=== PATIENT | female | born 1965 | race Asian ===

== ENCOUNTER 2021-01-29 16:09 | Inpatient (IN) | payer MEDICAID, SELFPAY ==
[~2021-01-29] VITALS: Ht 165.1 cm; Wt 63.5 kg
[2021-01-29 16:09] VITALS: BP 120/86
--- NOTE | 2021-01-29 16:10 | NUR ---
Patient BIBA BLS from [facility], transferred to bed 10. RN evaluating the patient at bedside.
[2021-01-29] MEDS ORDERED: KETOROLAC 60 MG/2 ML VIAL IM ONE (16:15)
[2021-01-29] MEDS ORDERED: TRA200 GT (16:27)
[2021-01-29] MEDS ORDERED: AMLO10TA GT (16:27)
[2021-01-29] MEDS ORDERED: HYDR-1100 GT (16:27)
[2021-01-29] MEDS ORDERED: CETI10CT GT (16:27)
[2021-01-29] MEDS ORDERED: LOSA50TA57 GT (16:27)
[2021-01-29] MEDS ORDERED: METF500T GT (16:27)
[2021-01-29] MEDS ORDERED: CALC-1018 GT (16:27)
[2021-01-29] MEDS ORDERED: DOCU-299 GT (16:27)
[2021-01-29] MEDS ORDERED: ASPI-1822 GT (16:27)
[2021-01-29] MEDS ORDERED: LANS15EC28 GT (16:27)
[2021-01-29] MEDS ORDERED: APIX5TAB GT (16:27)
--- NOTE | 2021-01-29 16:46 | NUR ---
LAB AT BEDSIDE.
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
--- NOTE | 2021-01-29 16:51 | NUR ---
sfdc technical architect at bedside.
[2021-01-29 16:59] LABS: BASOPHILS # (AUTO) 0.1 K/uL (0.00-0.22); BASOPHILS % (AUTO) 0.8 % (0.0-2.0); EOSINOPHILS # (AUTO) 0.2 K/uL (0-0.4); EOSINOPHILS % (AUTO) 2.5 % (0.0-4.0); HEMATOCRIT 35.2 % (36-48); HEMOGLOBIN 11.9 g/dL (12.0-16.0); LYMPHOCYTES # (AUTO) 3.3 K/uL (2.5-16.5); LYMPHOCYTES % (AUTO) 35.9 % (20.5-51.1); MEAN CORPUSCULAR HEMOGLOBIN 29 pg (27-31); MEAN CORPUSCULAR HGB CONC 34 g/dL (33-37); MEAN CORPUSCULAR VOLUME 86.9 fL (80-94); MONOCYTES # (AUTO) 0.6 K/uL (0.8-1.0); MONOCYTES % (AUTO) 6.2 % (1.7-9.3); NEUTROPHILS % (AUTO) 54.6 % (42.2-75.2); PLATELET COUNT (AUTO) 273 K/uL (140-450); RED BLOOD CELL COUNT(AUTO) 4.05 MIL/uL (4.20-5.40); RED CELL DISTRIBUTION WIDTH 13.6 % (11.6-13.7); WHITE BLOOD COUNT (AUTO) 9.1 K/uL (4.8-10.8)
--- NOTE | 2021-01-29 17:00 | NUR ---
PTS DAUGTHER AT BEDSIDE.
--- NOTE | 2021-01-29 17:09 | NUR ---
Dr. Acosta is evaluating the patient at bedside.
[2021-01-29 17:20] LABS: CREATININE 0.7 mg/dL (0.6-1.3)
--- NOTE | 2021-01-29 17:25 | NUR ---
PT UNABLE TO VOID AT THIS TIME. PT GIVEN FLUIDS.
[2021-01-29 17:26] LABS: ALBUMIN 3.7 g/dL (3.4-5.0); TOTAL BILIRUBIN 0.2 mg/dL (0.0-1.0)
--- NOTE | 2021-01-29 17:26 | NUR ---
DAUGHTER AT BEDSIDE ROBERT DESAI. SHE IS REQUESTING THAT PATIENT GO TO A FACILITY WHERE THERE ARE BRITISH SPEAKING STAFF MEMBERS SO THE PATIENT WILL FEEL SAFE. THE [place] [facility] [place] I CALLED AND SPOKE TO ALEC AND HE STATES THAT THE SOONEST HE MAY HAVE A BED IS TOMORROW AM. I ADVISED HIM THAT WE WOULD ADMIT HER AND FAX CLINICALS OVER ONCE AVAILABLE. [facility]- TELEHEALTH COORDINATOR FAX ATTENTION ALEC
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
[2021-01-29] MEDS ORDERED: cefTRIAXone 1,000 MG VIAL ONE (17:32)
--- NOTE | 2021-01-29 17:37 | NUR ---
DANILO SWAB COLLECTED AND WALKED OVER TO LAB.
--- NOTE | 2021-01-29 17:59 | NUR ---
PT UNABLE TO VOID.
--- NOTE | 2021-01-29 18:29 | NUR ---
PT REQUESTING TO HAVE DIAPER CHANGED. PERINEAL CARE PROVIDED TO PT AND PT CHANGED INTO CLEAN DIARPER. PT STILL UNABLE TO VOID, PT GIVEN FLUIDS PO.
--- NOTE | 2021-01-29 19:15 | NUR ---
TRANSFER OF CARE AT THIS TIME TO [facility]URA CORRAL
--- NOTE | 2021-01-29 19:25 | NUR ---
PERNIEAL CARE PROVIDED, SKIN LEFT CLEAN AND DRY. SKIN INTACT. UA COLLECTED VIA BEDPAN. VSS. PATIENT ABLE TO VERBALIZE NEEDS.
--- NOTE | 2021-01-29 19:45 | NUR ---
Patient will be admitted to care of . Admited to [facility]. Will go to room 107A. Belongings list completed. Report to KALI LORENZO.
[2021-01-29 19:46] LABS: APPEARANCE,URINE CLEAR (CLEAR); BILIRUBIN,URINE NEGATIVE (NEGATIVE); BLOOD, URINE NEGATIVE (NEGATIVE); COLOR,URINE YELLOW (YELLOW); LEUKOCYTE ESTERASE ,URINE TRACE (NEGATIVE); NITRITE, URINE NEGATIVE (NEGATIVE); UGLUCOSE NEGATIVE (NEGATIVE)
[2021-01-29 19:54] LABS: RBC,URINE FEW /HPF (0-5)
--- NOTE | 2021-01-29 20:00 | NUR ---
RECEIVED PATIENT FROM ER NURSE VIA [facility] FOR CONTINUITY OF CARE. ALERT AND ABLE TO MAKE NEEDS KNOWN IN CANTONESE. RESPIRATIONS EVEN, UNLABORED. NO S/S RESPIRATORY DISTRESS. S1/S2 AUSCULTATED. SKIN ASSESSMENT COMPLETED. SKIN WARM, DRY AND INTACT. SALINE LOCK TO RIGHT WRIST 22G PATENT/INTACT. NO C/O PAIN. NO S/S ACUTE DISTRESS. ABDOMEN SOFT, NONTENDER, NONDISTENDED. BOWEL SOUNDS ACTIVE x4 QUADRANTS. GTUBE PATENT/INTACT, FLUSHES WELL. NO RESIDUAL NOTED. HOB UP 30 DEGREES. PATIENT IS INCONTINENT OF B/B. LEFT SIDED WEAKNESS NOTED. PATIENT ORIENTED TO ROOM/STAFF AND CALL LIGHT. MRSA SCREEN COMPLETED. PLAN OF CARE DISCUSSED. CALL LIGHT IN REACH. SAFETY PRECAUTIONS IN PLACE.
--- NOTE | 2021-01-29 20:55 | NUR ---
LEFT A MESSAGE WITH MD REGARDING ADMITTING ORDERS.
[2021-01-29 20:56] VITALS: BP 128/90
--- NOTE | 2021-01-29 21:15 | NUR ---
SPOKE TO DAUGHTER ROBERT ON THE PHONE TO UPDATE HER ON HER MOTHER'S ADMISSION. ALL QUESTIONS REGARDING PATIENT'S CARE ANSWERED. DAUGHTER ABLE TO PROVIDED HISTORY FOR PATIENT.
--- NOTE | 2021-01-29 23:19 | NUR ---
INCONTINENT CARE RENDERED. NO S/S RESPIRATORY DISTRESS. NO C/O PAIN. NO S/S ACUTE DISTRESS. SAFETY PRECAUTIONS IN PLACE. CALL LIGHT IN REACH.
--- NOTE | 2021-01-30 01:21 | NUR ---
MADE ROUNDS. PATIENT IS ASLEEP. NO S/S RESPIRATORY DISTRESS. NO S/S ACUTE DISTRESS. SAFETY PRECAUTIONS IN PLACE. CALL LIGHT IN REACH.
--- NOTE | 2021-01-30 03:49 | NUR ---
PATIENT IS ASLEEP.
[2021-01-30 04:00] VITALS: BP 110/75
--- NOTE | 2021-01-30 05:03 | NUR ---
PATIENT RESTING COMFORTABLY IN BED. NO S/S RESPIRATORY DISTRESS. NO C/O PAIN. NO S/S ACUTE DISTRESS. PATIENT CLEAN/DRY. CALL LIGHT IN REACH. SAFETY PRECAUTIONS IN PLACE.
--- NOTE | 2021-01-30 05:53 | NUR ---
TO REVIEW MEDICATION REGIMEN FOR PATIENT.
[2021-01-30] MEDS ORDERED: MAG SULF 2000 MG/WATER PREMIX 50 ML IV PRN (06:55)
[2021-01-30] MEDS: NACL 0.9% 1,000 ML IV SCH (06:55)
[2021-01-30] MEDS ORDERED: POTASSIUM CHLORIDE 40 MEQ, LIDOCAINE MPF 1% 25 MG in NACL 0.9% 250 ML IV PRN (06:55)
[2021-01-30] MEDS ORDERED: ONDANSETRON 4 MG/2 ML VIAL IM/IVP PRN (06:55)
[2021-01-30] MEDS ORDERED: SODIUM PHOS / POTASSIUM PHOS 1 PKT PDR GT PRN (06:55)
[2021-01-30] MEDS ORDERED: MORPHINE SULFATE 2 MG/ML SYR IVP PRN (06:55)
[2021-01-30] MEDS ORDERED: ACETAMINOPHEN 325 MG TAB PO PRN (06:55)
[2021-01-30 07:18] LABS: BASOPHILS % (AUTO) 0.5 % (0.0-2.0); EOSINOPHILS # (AUTO) 0.2 K/uL (0-0.4); EOSINOPHILS % (AUTO) 2.5 % (0.0-4.0); HEMATOCRIT 34.9 % (36-48); HEMOGLOBIN 11.7 g/dL (12.0-16.0); LYMPHOCYTES % (AUTO) 22.7 % (20.5-51.1); MEAN CORPUSCULAR HEMOGLOBIN 30 pg (27-31); MEAN CORPUSCULAR HGB CONC 34 g/dL (33-37); MEAN CORPUSCULAR VOLUME 87.8 fL (80-94); MONOCYTES # (AUTO) 0.5 K/uL (0.8-1.0); NEUTROPHILS % (AUTO) 68.3 % (42.2-75.2); PLATELET COUNT (AUTO) 279 K/uL (140-450); RED BLOOD CELL COUNT(AUTO) 3.97 MIL/uL (4.20-5.40); WHITE BLOOD COUNT (AUTO) 8.8 K/uL (4.8-10.8)
[2021-01-30 07:25] LABS: ANION GAP 14.5 (8-16); CARBON DIOXIDE 26.8 mmol/L (21-32); CREATININE 0.6 mg/dL (0.6-1.3); MAGNESIUM 1.8 mg/dL (1.8-2.4); PHOSPHORUS 4.8 mg/dL (2.5-4.9); POTASSIUM 4.3 mmol/L (3.5-5.1)
--- NOTE | 2021-01-30 07:30 | NUR ---
RECEIVED BEDSIDE ENDORSEMENT FROM NIGHTSDEFT NURSE FOR CONTINUITY OF CARE.
[2021-01-30] MEDS: PANTOPRAZOLE 40 MG INJ VIAL IVP SCH (08:29)
[2021-01-30] MEDS: DOCUSATE 100 MG/10 ML UDC GT SCH ×2 (08:29→20:07)
[2021-01-30] MEDS: LOSARTAN 50 MG TAB GT SCH ×2 (08:29→20:07)
[2021-01-30] MEDS: CALCIUM CARB/VIT-D 500 MG/200 IU 1 TAB GT SCH ×2 (08:30→20:07)
[2021-01-30] MEDS: ASPIRIN 81 MG TAB.CHEW GT SCH (08:30)
[2021-01-30] MEDS: amLODIPine 5 MG TAB GT SCH (08:30)
[2021-01-30] MEDS: LABETALOL 200 MG TAB GT SCH ×2 (08:31→20:08)
[2021-01-30] MEDS: HYDROcodone/APAP 5/325 MG 1 TAB TAB GT PRN ×2 (08:31→18:24)
[2021-01-30] MEDS: APIXABAN 2.5 MG TAB GT SCH ×2 (08:35→20:07)
--- NOTE | 2021-01-30 08:48 | NUR ---
ADMINISTERED PRESCRIBED MEDS AND PRN PAIN MED ORDERED BY MD. PATIENT TOLERATED WELL. MEDICATION EDUCATION REINFORCEMENT NEEDED DUE TO LANGUAGE BARRIER. SAFETY MEASURES IN PLACE. WILL CONTINUE TO MONITOR.
--- NOTE | 2021-01-30 12:08 | NUR ---
PATIENT ROUNDING PERFORMED. PATIENT RESTING IN BED. SHOWS NO SIGNS OF DISTRESS/DISCOMFORT. PATIENT RESPIRATIONS EVEN AND UNLABORED. SAFETY MEASURES IN PLACE. WILL CONTINUE TO MONITOR.
[2021-01-30] MEDS: hydrALAZINE 25 MG TAB GT SCH ×2 (13:00→20:07)
--- NOTE | 2021-01-30 14:41 | NUR ---
PATIENT MEDICATION HELD PER PARAMETERS; BP 96/64 PULSE 75. PATIENT REQUESTED TO TURN ON TV. PATIENT SHOWS NO SIGNS OF DISTRESS. RESPIRATIONS EVEN AND UNLABORED. SAFETY MEASURES IN PLACE. WILL CONTINUE TO MONITOR.
--- NOTE | 2021-01-30 18:32 | NUR ---
PATIENT CRYING OF IV PAIN/DISCOMFORT. IV LINE PATENT. DISCONNECTED AND ADMINISTERED PRESCRIBED MEDICATION FOR PRN PAIN ORDERED BY MD. PATIENT TOLERATED WELL. MEDICATION EDUCATION REINFORCEMENT NEEDED. SAFETY MEASURES IN PLACE. WILL CONTINUE TO MONITOR.
--- NOTE | 2021-01-30 19:22 | NUR ---
BEDSIDE ENDORSEMENT PROVIDED TO NIGHTSHIFT NURSE FOR CONTINUITY OF CARE.
--- NOTE | 2021-01-30 19:22 | NUR ---
RECEIVED PATIENT FROM AM SHIFT NURSE VIA FOR CONTINUITY OF CARE. ALERT AND ABLE TO MAKE NEEDS KNOWN IN CANTONESE. RESPIRATIONS EVEN, UNLABORED. NO S/S RESPIRATORY DISTRESS. S1/S2 AUSCULTATED. SKIN WARM, DRY AND INTACT. SALINE LOCK TO RIGHT WRIST 22G PATENT/INTACT. NO C/O PAIN. NO S/S ACUTE DISTRESS. ABDOMEN SOFT, NONTENDER, NONDISTENDED. BOWEL SOUNDS ACTIVE x4 QUADRANTS. GTUBE PATENT/INTACT, FLUSHES WELL. NO RESIDUAL NOTED. HOB UP 30 DEGREES. PATIENT IS INCONTINENT OF B/B. LEFT SIDED WEAKNESS NOTED. PLAN OF CARE DISCUSSED. CALL LIGHT IN REACH. SAFETY PRECAUTIONS IN PLACE.
[2021-01-30 20:00] VITALS: BP 123/85
--- NOTE | 2021-01-30 21:00 | NUR ---
DUE MEDS GIVEN. PATIENT RESTING COMFORTABLY IN BED. NO S/S RESPIRATORY DISTRESS. NO C/O PAIN. NO S/S ACUTE DISTRESS. PATIENT CLEAN/DRY. SAFETY PRECAUTIONS IN PLACE. CALL LIGHT WITHIN REACH.
--- NOTE | 2021-01-30 23:42 | NUR ---
INCONTINENT CARE RENDERED WITH CHARTERED FINANCIAL ANALYST AT BEDSIDE. NO S/S RESPIRATORY DISTRESS. NO C/O PAIN. NO S/S ACUTE DISTRESS. SAFETY PRECAUTIONS IN PLACE. CALL LIGHT WITHIN REACH.
[2021-01-30] MEDS ORDERED: DEXTROSE 50% 50 ML SYR IVP PRN (23:55)
[2021-01-30] MEDS ORDERED: INSULIN LISPRO SLIDING SCALE 100 UNITS/ML VIAL SUBQ PRN (23:55)
--- NOTE | 2021-01-31 01:05 | NUR ---
MADE ROUNDS. INCONTINENT CARE RENDERED WITH PANEL LAY UP WORKER AT BEDSIDE. NO S/S RESPIRATORY DISTRESS. NO C/O PAIN. NO S/S ACUTE DISTRESS. SAFETY PRECAUTIONS IN PLACE. CALL LIGHT WITHIN REACH.
[2021-01-31] MEDS: HYDROcodone/APAP 5/325 MG 1 TAB TAB GT PRN ×2 (02:03→20:48)
--- NOTE | 2021-01-31 03:26 | NUR ---
PATIENT IS ASLEEP. NO S/S RESPIRATORY DISTRESS. NO S/S ACUTE DISTRESS. SAFETY PRECAUTIONS IN PLACE. CALL LIGHT WITHIN REACH.
[2021-01-31] MEDS: hydrALAZINE 25 MG TAB GT SCH ×3 (04:33→21:00)
--- NOTE | 2021-01-31 05:04 | NUR ---
INCONTINENT CARE RENDERED WITH BLACKTOP SPREADER AT BEDSIDE. NO S/S RESPIRATORY DISTRESS. NO C/O PAIN. NO S/S ACUTE DISTRESS. SAFETY PRECAUTIONS IN PLACE. CALL LIGHT WITHIN REACH.
[2021-01-31] MEDS: BLOOD GLUCOSE MONITORING 1 DEV DEV FS SCH ×4 (06:39→20:46)
[2021-01-31] MEDS: NACL 0.9% 1,000 ML IV SCH (06:55)
--- NOTE | 2021-01-31 07:30 | NUR ---
RECEIVED PATIENT FROM INSOLE PRESSER NURSE. AOX4, ONLY SPEAKS CANTONESE, NO C/O PAIN. NO APPARENT DISTRESS, RESPIRATIONS EVEN AND UNLABORED, SKIN WARM AND DRY. IV SITE RW 22G. PT REFUSING IVF AND FLUIDS. ABDOMEN SOFT, NONTENDER. SAFETY PRECAUTIONS IN PLACE. CALL LIGHT WITHIN REACH. WILL CONTINUE TO MONITOR
[2021-01-31 07:45] LABS: CREATININE 0.6 mg/dL (0.6-1.3); POTASSIUM 4.4 mmol/L (3.5-5.1)
[2021-01-31 07:53] LABS: BASOPHILS % (AUTO) 0.4 % (0.0-2.0); EOSINOPHILS # (AUTO) 0.2 K/uL (0-0.4); EOSINOPHILS % (AUTO) 2.3 % (0.0-4.0); HEMATOCRIT 35.4 % (36-48); LYMPHOCYTES # (AUTO) 2.3 K/uL (2.5-16.5); LYMPHOCYTES % (AUTO) 23.7 % (20.5-51.1); MEAN CORPUSCULAR HEMOGLOBIN 30 pg (27-31); MEAN CORPUSCULAR HGB CONC 34 g/dL (33-37); MEAN CORPUSCULAR VOLUME 88.1 fL (80-94); MONOCYTES # (AUTO) 0.6 K/uL (0.8-1.0); MONOCYTES % (AUTO) 6.1 % (1.7-9.3); NEUTROPHILS # (AUTO) 6.7 K/uL (1.8-7.7); NEUTROPHILS % (AUTO) 67.5 % (42.2-75.2); PLATELET COUNT (AUTO) 278 K/uL (140-450); RED BLOOD CELL COUNT(AUTO) 4.01 MIL/uL (4.20-5.40); RED CELL DISTRIBUTION WIDTH 13.5 % (11.6-13.7); WHITE BLOOD COUNT (AUTO) 9.9 K/uL (4.8-10.8)
[2021-01-31 08:00] VITALS: BP 122/74
[2021-01-31 08:09] LABS: ANION GAP 16.2 (8-16); CARBON DIOXIDE 25.2 mmol/L (21-32)
--- NOTE | 2021-01-31 08:32 | NUR ---
PATIENT HAS BEEN SCREENED AND CATEGORIZED HIGH NUTRITION RISK. PATIENT WILL BE SEEN WITHIN 1-2 DAYS OF ADMISSION. 01/31/21 FNS CONSULT FOR ROC LESS THAN 12 NOT ACCURATE, ROC SCORE WAS 15. REFERRAL WAS RECEIVED. PATIENT HAS G-TUBE. PHILIP KAYE RD
[2021-01-31] MEDS: PANTOPRAZOLE 40 MG INJ VIAL IVP SCH (09:00)
[2021-01-31] MEDS: DOCUSATE 100 MG/10 ML UDC GT SCH ×2 (09:00→20:46)
[2021-01-31] MEDS: LOSARTAN 50 MG TAB GT SCH ×2 (09:00→21:00)
[2021-01-31] MEDS: ASPIRIN 81 MG TAB.CHEW GT SCH (09:00)
[2021-01-31] MEDS: APIXABAN 2.5 MG TAB GT SCH ×2 (09:02→21:02)
[2021-01-31] MEDS: amLODIPine 5 MG TAB GT SCH (09:03)
[2021-01-31] MEDS: CALCIUM CARB/VIT-D 500 MG/200 IU 1 TAB GT SCH ×2 (09:03→20:47)
[2021-01-31] MEDS: LABETALOL 200 MG TAB GT SCH ×2 (09:03→20:46)
--- NOTE | 2021-01-31 09:10 | NUR ---
DUE MORNING MEDS GIVEN. REFUSED COLACE AND PROTONIX IVP. EDUCATED BENEFITS OF MEDS THROUGH TRANSITIONS RN CARE COORDINATOR. PT STILL REFUSED. TOLERATED PO MEDS WELL.
--- NOTE | 2021-01-31 10:20 | NUR ---
BENITO ESTRADA: SPOKE TO JUSTO IN ADMISSIONS AT [facility] [phone] THEY ARE ABLE TO ACCEPT THIS PATIENT, HOWEVER THEY DO NOT HAVE AN AVAILABLE BED TODAY. PROVIDED HER WITH CM NICOLETTE TO FOLLOW UP. Addendum: 01/31/21 at 1051 by Reta Lazar CM BENITO ESTRADA: JUSTO AT [facility] IS REQUESTING A PT EVAL. NOTIFIED MAURA DELA CRUZ Addendum: 02/01/21 at 1013 by Reta Lazar CM BENITO ESTRADA: RECEIVED A CALL FROM [place] AT [facility]. PATIENT CAN GO TO ROOM 3-A UNDER DR. SIM Addendum: 02/01/21 at 1021 by Reta Lazar CM BENITO ESTRADA: [facility] [place] [address] [address] [facility] [place] [id number] Room 3-A DR. SIM Addendum: 02/01/21 at 1117 by Reta aLzar CM BENITO ESTRADA: SPOKE TO JOHN TO ARRANGE TRANSPORTATION WITH [facility] [phone] OPT 4 OPT 1. ETA IS AROUND 5:00 PM. CONFIRMATION# [id number]. PROVIDED THE NURSES STATION NUMBER FOR TRANSPORTATION TO CALL WHEN THEY FIND AN AVAILABLE TRANSPORTATION SERVICE. Addendum: 02/01/21 at 1121 by Reta Lazar CM BENITO ESTRADA: NOTIFIED MAURA BUSTAMANTE. CALLED AND LEFT A VOICEMAIL FOR PATIENTS DAUGHTER ROBERT Addendum: 02/01/21 at 1129 by Reta Lazar CM BENITO ESTRADA: RECEIVED A PHONE CALL FROM [facility], TRANSPORTATION HAS BEEN ARRANGED WITH [facility] FOR 6:30 PM
--- NOTE | 2021-01-31 11:35 | NUR ---
SEEN BY PHYSICAL THERAPIST SHARIF
--- NOTE | 2021-01-31 14:03 | NUR ---
01/31/21 RD INITIAL ASSESSMENT COMPLETED PLEASE REFER TO NUTRITION ASSESSMENT UNDER CARE ACTIVITY FOR ESTIMATED NUTRITIONAL NEEDS. 1. RECOMMEND MECHANICAL SOFT CARDIAC DIET TOLERATED 2. RECOMMEND ENSURE ONCE DAILY 3. PROVIDE ASSISTANCE WITH MEALS 4. RD TO FOLLOW-UP 3-5 DAYS, MODERATE RISK PHILIP KAYE, MAUREEN
--- NOTE | 2021-01-31 15:36 | NUR ---
NO S/S RESPIRATORY DISTRESS. NO C/O PAIN. NO S/S ACUTE DISTRESS. SAFETY PRECAUTIONS IN PLACE. CALL LIGHT WITHIN REACH.
[2021-01-31 16:00] VITALS: BP 107/75
--- NOTE | 2021-01-31 17:20 | NUR ---
INCONTINENT CARE DONE. TURNED AND REPOSITIONED PT
--- NOTE | 2021-01-31 18:53 | NUR ---
PT IN BED. NO C/O PAIN, NO SOB
--- NOTE | 2021-01-31 19:30 | NUR ---
RECEIVED REPORT FROM DAY SHIFT, PT AWAKE SPEAKING CANTONESE PRIMARILY. PT HAS LEFT SIDED HEMIPLEGIA, LEFT ARM FLACCID. PT ABLE TO MOVE RIGHT SIDE. LUNGS CLEAR TO AUSCULTATION, ABD SOFT NON DISTENDED, INCONTINENT OF B/B. SKIN INTACT. IV TO R WRIST SL PATENT INTACT. BED LOCKED IN LOWEST POSITION. WILL CONTINUE TO OBSERVE.
--- NOTE | 2021-01-31 21:10 | NUR ---
PT CALLING OUT IN [place]ANTONESE AND POINTING TO HER RT HAND, ARM AND SHOULDER, DIALED [address] [employer] MACHINE SERV[employer] AND TALKED TO ED, PT STATED HIS ARM IS HURTING AND SHE THINKS ITS HER IV THAT'S CAUSING THE PAIN, TOLD HER THAT WE GONNA REMOVED THE IV AND PUT ANOTHER ONE AND GIVE HER MEDICATION FOR PAIN, PT VERY EMOTIONAL AT THIS TIME, MAURA CALDERÓN AT BEDSIDE.
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
--- NOTE | 2021-01-31 23:15 | NUR ---
FACETIMED FAMILY MEMBER, ROBERT DESAI, DAUGHTER, , PT SPOKE TO FAMILY, CRYING, EMOTIONAL, YELLING AT STAFF IN CANTONESE, POINTING HER RIGHT FINGER TOWARDS HER SHOULDER. PT MAKING CLICKING SOUNDS WITH HER MOUTH TOWARD STAFF. INSTRUCTED DAUGHTER THAT PT HAS BEEN MEDICATED FOR PAIN, YET PT IS STILL SCREAMING. DAUGHTER AND BOTH TALKED TO PT >45 MINS TO CALM PT.
[2021-02-01] VITALS: BP 99/62
--- NOTE | 2021-02-01 00:20 | NUR ---
NEW ORDERS FOR MORPHINE 4 MG IV AND BENADRYL 50 MG IV, WILL LIZBETH OUT ORDERS WILL CONTINUE TO OBSERVE.
[2021-02-01] MEDS ORDERED: MORPHINE SULFATE 2 MG/ML SYR IVP PRN (00:30)
[2021-02-01] MEDS ORDERED: diphenhydrAMINE 50 MG/ML VIAL IVP PRN (00:30)
[2021-02-01] MEDS ORDERED: MORPHINE SULFATE 4 MG/ML SYR IVP SCH (00:30)
--- NOTE | 2021-02-01 02:03 | NUR ---
PT HAS EYES CLOSED; FLACC 0 NO ACUTE DISTRESS NOTED. WILL CONTINUE TO OBSERVE.
[2021-02-01] MEDS: hydrALAZINE 25 MG TAB GT SCH ×2 (05:00→13:15)
--- NOTE | 2021-02-01 05:15 | NUR ---
PT RESTING EYES CLOSED NO ACUTE DISTRESS NOTED WILL CONTINUE TO OBSERVE.
[2021-02-01] MEDS: NACL 0.9% 1,000 ML IV SCH (06:40)
[2021-02-01] MEDS: BLOOD GLUCOSE MONITORING 1 DEV DEV FS SCH ×3 (06:40→16:05)
[2021-02-01 07:24] LABS: BASOPHILS % (AUTO) 0.4 % (0.0-2.0); EOSINOPHILS # (AUTO) 0.2 K/uL (0-0.4); EOSINOPHILS % (AUTO) 2.4 % (0.0-4.0); HEMATOCRIT 32.4 % (36-48); LYMPHOCYTES # (AUTO) 2.8 K/uL (2.5-16.5); LYMPHOCYTES % (AUTO) 31.3 % (20.5-51.1); MEAN CORPUSCULAR HEMOGLOBIN 29 pg (27-31); MEAN CORPUSCULAR HGB CONC 34 g/dL (33-37); MEAN CORPUSCULAR VOLUME 86.7 fL (80-94); MONOCYTES # (AUTO) 0.6 K/uL (0.8-1.0); NEUTROPHILS # (AUTO) 5.3 K/uL (1.8-7.7); NEUTROPHILS % (AUTO) 58.9 % (42.2-75.2); PLATELET COUNT (AUTO) 257 K/uL (140-450); RED BLOOD CELL COUNT(AUTO) 3.74 MIL/uL (4.20-5.40); RED CELL DISTRIBUTION WIDTH 13.6 % (11.6-13.7)
--- NOTE | 2021-02-01 07:26 | NUR ---
PT ENDORSED FOR CONTINUITY OF CARE BY NIGHT NURSE IN STABLE CONDITION. PT IS RESTING COMFORTABLE IN BED, ON ROOM AIR WITH CHEST RISING AND FALLING EVEN AND UNLABORED. PT IS ON MEDSURG. PT HAS A RIGHT AC 20 GAUGE BUT IS REFUSED IV FLUIDS DURING HYDRAULIC MECHANIC. PT ALSO REFUSED ABX DURING HYDRAULIC MECHANIC. SAFETY MEASURES IN PLACE, CALL LIGHT WITHIN REACH. WILL CONTINUE TO MONITOR.
--- NOTE | 2021-02-01 07:28 | NUR ---
REPORT GIVEN TO DAY SHIFT FOR CONTINUITY OF CARE.
[2021-02-01 07:30] LABS: ANION GAP 16.9 (8-16); CARBON DIOXIDE 26.2 mmol/L (21-32); CREATININE 0.6 mg/dL (0.6-1.3); POTASSIUM 4.1 mmol/L (3.5-5.1)
[2021-02-01 08:00] VITALS: BP 109/75
[2021-02-01] MEDS: PANTOPRAZOLE 40 MG INJ VIAL IVP SCH (08:51)
[2021-02-01] MEDS: DOCUSATE 100 MG/10 ML UDC GT SCH (08:51)
[2021-02-01] MEDS: LABETALOL 200 MG TAB GT SCH (08:52)
[2021-02-01] MEDS: APIXABAN 2.5 MG TAB GT SCH (08:52)
[2021-02-01] MEDS: amLODIPine 5 MG TAB GT SCH (08:53)
[2021-02-01] MEDS: CALCIUM CARB/VIT-D 500 MG/200 IU 1 TAB GT SCH (08:54)
[2021-02-01] MEDS: LOSARTAN 50 MG TAB GT SCH (08:54)
[2021-02-01] MEDS: ASPIRIN 81 MG TAB.CHEW GT SCH (08:55)
[2021-02-01] MEDS ORDERED: AMOX-999 PO (11:42)
--- NOTE | 2021-02-01 12:15 | NUR ---
PT BLOOD GLUCOSE CHECK, 112, PER SLIDING SCALE NO INSULIN COVERAGE NEEDED.
--- NOTE | 2021-02-01 15:11 | NUR ---
FULL REPORT GIVEN TO AARON FROM [facility], , FOR TRANSFER. ALL INFORMATION RELAYED. SATISFIED ALL QUESTIONS AND PROVIDED THE LATEST VITAL SIGNS. NO CONCERNS REPORTED BY AARON.
--- NOTE | 2021-02-01 15:17 | NUR ---
DAUGHTER, ROBERT, CONTACTED TO GIVE UPDATE ABOUT TRANSFER. DAUGHTER DID NOT ANSWER, VOICEMAIL WAS LEFT.
[2021-02-01 15:26] VITALS: BP 109/75
[2021-02-01 16:00] VITALS: BP 106/68
--- NOTE | 2021-02-01 16:05 | NUR ---
BLOOD SUGAR IS 105, NO INSULIN NEEDED PER SLIDING SCALE. PT IN STABLE CONDITION, CALL LIGHT WITHIN REACH. SAFETY MEASURES IN PLACE. WILL CONTINUE TO MONITOR,
--- NOTE | 2021-02-01 18:43 | NUR ---
PT WAS PICKED UP BY [facility]. PT IN STABLE CONDITION. CELL PHONE AND MASK ARE IN HER POSSESSION. TRANSPORTATION PERSONAL SATISFIED AND NO QUESTIONS.
== END 2021-02-01 18:48 | DRG 139 ==
LOC: MED 16:09 → MTU 18:29
PROVIDERS: ADMIT Hospitalist; ATTEND Hospitalist
DX: J18.9 Pneumonia, unspecified organism (principal); I69.354 Hemiplegia and hemiparesis following cerebral infarction affecting left non-dominant side; T76.21XA Adult sexual abuse, suspected, initial encounter; R13.10 Dysphagia, unspecified; N39.0 Urinary tract infection, site not specified; Z20.822 Contact with and (suspected) exposure to COVID-19; K21.9 Gastro-esophageal reflux disease without esophagitis; I10 Essential (primary) hypertension; E78.5 Hyperlipidemia, unspecified; F32.9 Major depressive disorder, single episode, unspecified; F41.9 Anxiety disorder, unspecified; Z79.84 Long term (current) use of oral hypoglycemic drugs; Z79.899 Other long term (current) drug therapy; Z79.01 Long term (current) use of anticoagulants; Z93.1 Gastrostomy status
CPT/HCPCS: 36415; 71045; 80048; 80053; 81001; 82948; 83735; 84100; 85025; 87040; 87081; 87086; 96365; 96372; 97110; 97112; 97163-GP; 99285; C9113; J0696; J1200; J1885; J2270; J7060